=== PATIENT | male | born 1995 | race Two or more races ===

== ENCOUNTER 2017-09-06 16:56 | Emergency (ER) | payer SELFPAY ==
[~2017-09-06] VITALS: Ht 177.8 cm; Wt 72.6 kg
[2017-09-06 17:41] VITALS: BP 113/60
== END 2017-09-06 18:08 | disposition home or self-care (01) ==
LOC: ER 17:05
DX: S39.012A Strain of muscle, fascia and tendon of lower back, initial encounter (principal); S80.01XA Contusion of right knee, initial encounter; V43.52XA Car driver injured in collision with other type car in traffic accident, initial encounter; Y92.89 Other specified places as the place of occurrence of the external cause; Y93.89 Activity, other specified; Y99.8 Other external cause status
CPT/HCPCS: 72100

== ENCOUNTER 2017-09-11 14:10 | Emergency (ER) | payer SELFPAY ==
[~2017-09-11] VITALS: Ht 177.8 cm; Wt 72.6 kg
[2017-09-11 15:22] VITALS: BP 126/65
== END 2017-09-11 16:09 | disposition home or self-care (01) ==
LOC: ER 14:10
DX: S16.1XXA Strain of muscle, fascia and tendon at neck level, initial encounter (principal); V43.52XA Car driver injured in collision with other type car in traffic accident, initial encounter; Y93.89 Activity, other specified; Y92.89 Other specified places as the place of occurrence of the external cause; Y99.8 Other external cause status
CPT/HCPCS: 72125